=== PATIENT | female | born 1980 | race Caucasian/White ===

== ENCOUNTER 2017-06-19 22:24 | Emergency (ER) | payer BC ==
[2015-11-30 17:06] VITALS: Ht 172.7 cm; Wt 59.0 kg
[~2017-06-19] VITALS: Ht 172.7 cm; Wt 59.0 kg
[~2017-06-19 22:24] MED LIST: IBUP800T37 PO; LIDOCAINE 2% VISC SLN 15ML UDC PO ONE; MAG HYD/AL HYD/SIMETH 30ML UDC PO ONE; OXYC-865 PO; PER PO; PREN-127 PO
[2017-06-19] MEDS ORDERED: ETON1VAG7 VG (22:34)
--- NOTE | 2017-06-19 22:49 | ER Report ---
History and Physical Time Seen By MD: 22:48 Hx. of Stated Complaint: PT REPORTS EPIGASTRIC PAIN THAT STARTED TODAY. REPORTS NAUSEA WITHOUT VOMITING. DENIES DIARRHEA. HPI/ROS CHIEF COMPLAINT: Abdominal pain HISTORY OF PRESENT ILLNESS: A 37-year-old otherwise healthy female Midepigastric abdominal pain onset this afternoon after lunch seem to go away then worsened again associated with foul-smelling Arps bloating and cramps burning sensation no sensation of reflux disease pain is nonradiating no fevers or chills some nausea and vomiting some diarrhea and loose stools that seemed to have improved exposure to GI illness and family member thought to be the thought stomach flu denies back pain or urinary symptoms are hematuria denies fevers no chest pain or shortness of breath no other concerns or complaints today REVIEW OF SYSTEMS: Constitutional: No fever, no chills. Eyes: No discharge. ENT: No sore throat. Cardiovascular: No chest pain, no palpitations. Respiratory: No cough, no shortness of breath. Gastrointestinal: Otherwise as per history of present illness Genitourinary: No hematuria. Musculoskeletal: No back pain. Skin: No rashes. Neurological: No headache. Allergies: Coded Allergies: No Known Drug Allergies (Unverified , 06/19/17) Home Meds Reported Medications Etonogestrel/Ethinyl Estradiol (NUVARING VAGINAL RING) 1 Each Vag.ring, 1 EACH VG monthly, VAG.RING 06/19/17 Discontinued Reported Medications Vits W-Ca,Fe,Fa(<1MG) ( VITAMINS) 1 Each Tablet, 1 EACH PO DAILY, TAB 06/05/16 Hx Smoking: No Smoking Status: Never Smoker Exposure to Second Hand Smoke?: No Hx Substance Use Disorder: No Hx Alcohol Use: No Constitutional Vital Sign - Last 24 Hours 06/19/17 22:34 Temp 98.2 Pulse 76 Resp 14 B/P (MAP) 125/81 Pulse Ox 98 O2 Delivery Room Air Physical Exam General Appearance: The patient is alert, has no immediate need for airway protection and no signs of toxicity. No acute distress Eyes: Pupils equal and round no pallor or injection. ENT, Mouth: Mucous membranes are moist. Respiratory: There are no retractions, lungs are clear to auscultation. Cardiovascular: Regular rate and rhythm. [ ] Gastrointestinal: Abdomen is soft and non tender, no masses, bowel sounds normal. Neurological: Normal Skin: Warm and dry, no rashes. Musculoskeletal: Neck is supple non tender. Extremities are nontender, nonswollen and have full range of motion. No edema DIFFERENTIAL DIAGNOSIS: After history and physical exam differential diagnosis was considered for gastritis, peptic ulcer disease, gallstones, Helicobacter pylori this is an incomplete list of diagnoses considered Medical Decision Making Data Points Result Diagram: 06/19/17223506/19/172235 Laboratory Hematology Test 06/19/17 22:36 Red Blood Count 4.57 M/uL (4.17-5.56) Mean Corpuscular Volume 92.7 fL (80.0-96.0) Mean Corpuscular Hemoglobin 31.7 pg (26.0-33.0) Mean Corpuscular Hemoglobin Concent 34.2 g/dL (32.0-36.0) Red Cell Distribution Width 12.5 % (11.5-14.5) Mean Platelet Volume 8.1 fL (7.2-11.1) Neutrophils (%) (Auto) 86.4 % (39.4-72.5) Lymphocytes (%) (Auto) 9.5 % (17.6-49.6) Monocytes (%) (Auto) 3.5 % (4.1-12.4) Eosinophils (%) (Auto) 0.1 % (0.4-6.7) Basophils (%) (Auto) 0.5 % (0.3-1.4) Nucleated RBC Relative Count (auto) 0.0 /100WBC Neutrophils # (Auto) 7.0 K/uL (2.0-7.4) Lymphocytes # (Auto) 0.8 K/uL (1.3-3.6) Monocytes # (Auto) 0.3 K/uL (0.3-1.0) Eosinophils # (Auto) 0.0 K/uL (0.0-0.5) Basophils # (Auto) 0.0 K/uL (0.0-0.1) Nucleated RBC Absolute Count (auto) 0.00 K/uL Sodium Level 138 mmol/L (137-145) Potassium Level 3.6 mmol/L (3.5-5.0) Chloride Level 104 mmol/L (98-107) Carbon Dioxide Level 22 mmol/L (22-31) Blood Urea Nitrogen 9 mg/dl (7-18) Creatinine 0.90 mg/dl (0.52-1.04) Glomerular Filtration Rate Calc > 60.0 Random Glucose 111 mg/dl (75-110) Calcium Level 8.3 mg/dl (8.4-10.2) Total Bilirubin 0.8 mg/dl (0.2-1.3) Aspartate Amino Transf (AST/SGOT) 27 U/L (0-35) Alanine Aminotransferase (ALT/SGPT) 37 U/L (0-56) Alkaline Phosphatase 52 U/L (0-126) Total Protein 7.3 gm/dl (6.3-8.2) Albumin 3.7 g/dl (3.5-5.0) Lipase 192 U/L (23-300) Helicobacter pylori IgG Antibody Negative (NEGATIVE) Chemistry Test 06/19/17 22:36 White Blood Count 8.1 k/uL (4.5-11.0) Red Blood Count 4.57 M/uL (4.17-5.56) Hemoglobin 14.5 g/dL (12.0-16.0) Hematocrit 42.3 % (34.0-47.0) Mean Corpuscular Volume 92.7 fL (80.0-96.0) Mean Corpuscular Hemoglobin 31.7 pg (26.0-33.0) Mean Corpuscular Hemoglobin Concent 34.2 g/dL (32.0-36.0) Red Cell Distribution Width 12.5 % (11.5-14.5) Platelet Count 356 K/uL (150-450) Mean Platelet Volume 8.1 fL (7.2-11.1) Neutrophils (%) (Auto) 86.4 % (39.4-72.5) Lymphocytes (%) (Auto) 9.5 % (17.6-49.6) Monocytes (%) (Auto) 3.5 % (4.1-12.4) Eosinophils (%) (Auto) 0.1 % (0.4-6.7) Basophils (%) (Auto) 0.5 % (0.3-1.4) Nucleated RBC Relative Count (auto) 0.0 /100WBC Neutrophils # (Auto) 7.0 K/uL (2.0-7.4) Lymphocytes # (Auto) 0.8 K/uL (1.3-3.6) Monocytes # (Auto) 0.3 K/uL (0.3-1.0) Eosinophils # (Auto) 0.0 K/uL (0.0-0.5) Basophils # (Auto) 0.0 K/uL (0.0-0.1) Nucleated RBC Absolute Count (auto) 0.00 K/uL Glomerular Filtration Rate Calc > 60.0 Calcium Level 8.3 mg/dl (8.4-10.2) Total Bilirubin 0.8 mg/dl (0.2-1.3) Aspartate Amino Transf (AST/SGOT) 27 U/L (0-35) Alanine Aminotransferase (ALT/SGPT) 37 U/L (0-56) Alkaline Phosphatase 52 U/L (0-126) Total Protein 7.3 gm/dl (6.3-8.2) Albumin 3.7 g/dl (3.5-5.0) Lipase 192 U/L (23-300) Helicobacter pylori IgG Antibody Negative (NEGATIVE) ED Course/Re-evaluation ED Course 06/19/2017 10:59:07 pm plan of care agreed-upon. Results discussed 06/20/2017 12:42:05 am patient feeling better and may to go home. Patient instructed to avoid NSAIDs avoid acidic foods avoid all call fall and avoid spicy foods until improved. Decision to Disposition Date: Jun 20, 2017 Decision to Disposition Time: 00:42 Depart Departure Latest Vital Signs Vital Signs Date Time Temp Pulse Resp B/P (MAP) Pulse Ox O2 Delivery O2 Flow Rate FiO2 06/19/17 22:34 98.2 76 14 125/81 98 Room Air Impression: Primary Impression: Epigastric abdominal pain Additional Impression: Dyspepsia Condition: Improved Disposition: HOME OR SELF-CARE New Scripts Pantoprazole Sodium (PROTONIX) 40 Mg 40 MG PO QDAY for 10 Days, #20 PACK Prov: BRENDA GRAYSON MD 06/20/17 Patient Instructions: Epigastric Pain (ED) Problem Qualifiers BRENDA GRAYSON MD Jun 19, 2017 22:49
[2017-06-19] MEDS ORDERED: FAMOTIDINE(*) 20MG/50ML PREMIX 50 ML IVPB ONE (22:55)
[2017-06-19] MEDS ORDERED: NS(*) 0.9% 1000 ML BAG 1,000 ML IV ONE (22:55)
[2017-06-19] MEDS ORDERED: ATRO/SCOPOL/HYOSCY/PB 5 ML ELX PO ONE (22:55)
[2017-06-19 23:06] LABS: PLATELET COUNT, AUTOMATED 356 K/uL (150-450)
[2017-06-19] MEDS ORDERED: LIDOCAINE 2% VISC SLN 15ML UDC ONE (23:13)
[2017-06-19] MEDS ORDERED: MAG HYD/AL HYD/SIMETH 30ML UDC ONE (23:14)
[2017-06-20] MEDS ORDERED: PANT40SU3 PO (00:44)
[2017-06-20 00:51] VITALS: BP 98/89
== END 2017-06-20 00:58 | disposition home or self-care (01) ==
LOC: ER 22:57
DX: R10.13 Epigastric pain (principal)
CPT/HCPCS: 83690; 85025; 86677; 96361; 96365; 99284; J3490; J7030; 82040; 82247; 82310; 82374; 82435; 82565; 82947; 84075; 84132; 84155; 84295; 84450; 84460; 84520

== ENCOUNTER → 2017-09-30 | Outpatient (REF) ==
[2015-11-30 17:06] VITALS: BMI 22.5
[~2017-09-30] MED LIST changes: +ETON1VAG7 VG; -LIDOCAINE 2% VISC SLN 15ML UDC PO ONE; -MAG HYD/AL HYD/SIMETH 30ML UDC PO ONE; +PANT40SU3 PO
[2017-09-30 08:54] LABS: LDL CHOLESTEROL 98 mg/dl
== END ==
DX: Z02.9 Encounter for administrative examinations, unspecified (principal)

== ENCOUNTER → 2018-06-16 | Outpatient (CLI) | payer OTHER ==
[2015-11-30 17:06] VITALS: BMI 22.5
--- NOTE | 2018-06-16 09:20 | RADIOLOGY IMAGING REPORT ---
FACILITY: [facility] - [place] PATIENT NAME: Cathleen Silver : 1980 MR: [id number] V: [id number] EXAM DATE: ORDERING PHYSICIAN: SYD ROBERTS TECHNOLOGIST: Location: [facility] Patient: Cathleen Silver : 1980 Visit/Account:[id number] Date of Sevice: 06/16/2018 FINGER LEFT 5TH DIGIT INDICATION: Left fifth finger pain and swelling. Injury yesterday. COMPARISON: None available FINDINGS: 3 views of the left fifth finger. Dislocation at the PIP joint. The distal portion is dis located posterior lateral. No discrete fracture is identified. No other dislocation. No bony lesions or periosteal abnormality. No appreciable degenerative change. Soft tissues show swelling without rad iopaque foreign body. IMPRESSION: Dislocation of the left fifth finger PIP joint without appreciable fracture. I called report to SYD ROBERTS at 06/16/2018 9:16 AM. Report Dictated By: Oscar Mccoy at 06/16/2018 9:06 AM Report E-Signed By: Oscar Mccoy at 06/16/2018 9:16 AM WSN:[id number]
== END ==
LOC: RAD 08:26
PROVIDERS: ATTEND Internal Medicine
DX: S63.257A Unspecified dislocation of left little finger, initial encounter (principal)

== ENCOUNTER → 2018-09-23 | Outpatient (REF) ==
[2015-11-30 17:06] VITALS: BMI 22.5
[2018-09-23 10:20] LABS: LDL CHOLESTEROL 108 mg/dl
== END ==
DX: Z02.9 Encounter for administrative examinations, unspecified (principal)